=== PATIENT | female | born 1975 | race Caucasian/White ===

== ENCOUNTER → 2016-11-09 | Outpatient (CLI) | payer BC | END | disposition home or self-care (01) | LOC: C.PAPS 11:50 | PROVIDERS: ATTEND Obstetrics & Gynecology | DX: Z01.419 Encounter for gynecological examination (general) (routine) without abnormal findings (principal) ==

== ENCOUNTER → 2016-12-08 | Outpatient (CLI) | payer BC ==
--- NOTE | 2016-12-09 12:37 | MAMMOGRAPHY REPORT ---
BILATERAL DIGITAL SCREENING MAMMOGRAM TOMOSYNTHESIS WITH CAD: 12/08/2016 CLINICAL HISTORY: Routine screening examination. TECHNIQUE: Breast tomosynthesis in addition to standard 2D mammography was performed. Current study was also evaluated with a Computer Aided Detection (CAD) system. COMPARISON: Comparison is made to exam dated: 12/03/2015 mammogram - [facility]. BREAST COMPOSITION: The tissue of both breasts is heterogeneously dense, which may obscure small ma sses. The breast density is increased compared to last years mammogram, unclear if this may be rela ander to technical differences. FINDINGS: No developing mass, architectural distortion or cluster of suspicious microcalcifications is seen in either breast. IMPRESSION: ACR BI-RADS CATEGORY 2: BENIGN There is no mammographic evidence of malignancy. A 1 year screening mammogram is recommended. The p atient will receive written notification of the results. Approximately 10% of breast cancers are not detected with mammography. A negative mammographic repor t should not delay biopsy if a clinically suggestive mass is present. Kelli Coffman M.D. ay/:12/08/2016 17:28:59 Database Support: Anne-Marie FAUSTIN)(Aparna), [facility] letter sent: Normal 1/2 BI-RADS Code: ACR BI-RADS Category 2: Benign
== END | disposition home or self-care (01) ==
LOC: C.MAMM 13:06
PROVIDERS: ATTEND Family Medicine
DX: Z12.31 Encounter for screening mammogram for malignant neoplasm of breast (principal)

== ENCOUNTER → 2017-06-09 | Outpatient (CLI) | payer BC ==
[2017-06-12 11:12] LABS: CHLAMYDIA TRACH RNA*** NOT DETECTED (NOT DETECTED); GC (NEIS GONORRHOEAE)RNA** NOT DETECTED (NOT DETECTED)
== END | disposition home or self-care (01) ==
LOC: C.LABSPEC 15:37
PROVIDERS: ATTEND Obstetrics & Gynecology
DX: Z11.3 Encounter for screening for infections with a predominantly sexual mode of transmission (principal)

== ENCOUNTER → 2017-12-10 | Outpatient (CLI) | payer OTHER ==
--- NOTE | 2017-12-10 15:45 | MAMMOGRAPHY REPORT ---
BILATERAL DIGITAL SCREENING MAMMOGRAM TOMOSYNTHESIS WITH CAD: 12/10/2017 CLINICAL HISTORY: Routine screening. Patient has no complaints. TECHNIQUE: Breast tomosynthesis in addition to standard 2D mammography was performed. Current study was also evaluated with a Computer Aided Detection (CAD) system. COMPARISON: Comparison is made to exams dated: 12/08/2016 mammogram and 12/03/2015 mammogram - [facility]. BREAST COMPOSITION: The tissue of both breasts is heterogeneously dense, which may obscure small mas ses. FINDINGS: No suspicious masses, calcifications, or areas of architectural distortion are noted in ei ther breast. There has been no significant interval change compared to prior exams. IMPRESSION: ACR BI-RADS CATEGORY 1: NEGATIVE There is no mammographic evidence of malignancy. A 1 year screening mammogram is recommended. The pa tient will receive written notification of the results. Approximately 10% of breast cancers are not detected with mammography. A negative mammographic report should not delay biopsy if a clinically suggestive mass is present. Tonja Bonilla M.D. ah/:12/10/2017 14:59:16 Migratory Game Bird Biologist: Latrice Vazquez RT(R)(M)(BD), [facility] letter sent: Normal 1/2 BI-RADS Code: ACR BI-RADS Category 1: Negative
== END | disposition home or self-care (01) ==
LOC: C.MAMM 09:19
PROVIDERS: ATTEND Physician Assistant
DX: Z12.31 Encounter for screening mammogram for malignant neoplasm of breast (principal)

== ENCOUNTER 2025-06-20 14:47 | Inpatient (IN) ==
[2025-06-20 15:48] LABS: Hematocrit (blood only) 36.6 % (37.0-47.0); Hemoglobin 13.1 g/dl (12.0-16.0); Immature Granulocytes # (auto) 0.07 K/uL (0.01-0.20); Immature Granulocytes % (auto) 0.6 %; Mean Corpuscular Hemoglobin 31.6 pg (25.0-34.0); Mean Corpuscular Volume 88.2 fL (80.0-100.0); Platelet Count 266 K/uL (130-400); RDW Standard Deviation 37.8 fL (36.4-46.3); Red Blood Count 4.15 M/uL (4.20-5.40); White Blood Count 10.80 K/ul (4.8-10.8)
[2025-06-20 15:51] LABS: Appearance Urine Clear (Clear); Bacteria Urine Automated 2+ (None Seen); Cast Urine Automated 0-2 /lpf (0-2); Epithelial Cell Urine Auto 0-2 /hpf (0-2); Glucose Urine UA Negative (Negative); RBC Urine Automated >20 /hpf (0-2); WBC Urine Automated 0-5 /hpf (0-5)
[2025-06-20 16:14] LABS: Alanine Aminotransferase 16.0 U/L (7-52); Albumin Globulin Ratio 1.0 (0.9-2); Alkaline Phosphatase 67.0 U/L (34-104); Anion Gap 9.0 (3-11); Bilirubin,Total 0.8 mg/dl (0.2-1.0); Blood Urea Nitrogen 7.0 mg/dl (6-23); Calcium 8.9 mg/dl (8.6-10.3); Carbon Dioxide 26.0 mmol/L (21-32); Chloride 100.0 mmol/L (98-107); Creatinine Clr Calc Pharmacy 126.8 ml/min; Globulin 3.9 gm/dl (2.5-4.0); Glucose 106.0 mg/dl (70-99(Fasting)); Lipase 33.0 U/L (11-82); Potassium 3.4 mmol/L (3.5-5.1); Sodium 135.0 mmol/L (136-145); Total Protein 7.8 gm/dl (6.0-8.3)
--- NOTE | 2025-06-20 17:57 | Emergency Department Note ---
Impression & Plan Duodenal abscess, Perforated duodenal ulcer, Acute upper abdominal pain ED Provider Note NAME: MELANIA ROBERTS AGE: 49 SEX: F : 1975 ARRIVES VIA: Walk-In INFORMANT: Patient, ED PROVIDER(S): Sp Bethea MD CHIEF COMPLAINT: Abdominal pain, abnormal outpatient CT scan MEDICAL DECISION MAKING: Patient presents due to concern for abnormal outpatient CT scan which showed perforated duodenal ulcer with small amount of fluid/abscess. IV was established and blood work was obtained. The patient was also ordered blood cultures empiric IV Zosyn IV fluids procalcitonin. Patient ordered IV Protonix bolus and drip. I did review the patient's outpatient CT with general surgery Dr. Melendrez who recommended conservative management at this time and medical admission. Patient was ordered IV Tylenol 1 g. I subsequently did speak with the on-call hospitalist service Poppy Davis PA-C with Dr. Mathew. Discussion w/ other healthcare providers: Dr. Melendrez general surgery Pamela Davis PA-C and Dr. Gonzalez Prior /Outside records reviewed: None Differential diagnosis: Appendicitis, ovarian cyst, ovarian torsion, ectopic , TOA, PID, diverticulitis, UTI, obstruction, inflammatory bowel disease, renal colic, PUD, pancreatitis, biliary pathology, hernia, volvulus, constipation, as well as other pathologies were considered. Diagnostics, as interpreted by me: ECG: None Cardiac monitoring: An order was placed for continuous cardiac monitoring. The monitor shows a rate of 85 with sinus rhythm. Patient was placed on pulse oximetry Medical decision rules: None Imaging studies: Outpatient CT report from earlier today: ABDOMEN AND PELVIS CT WITH IV CONTRAST CT DOSE: 910.18 mGy.cm HISTORY: R10.9 - Unspecified abdominal pain TECHNIQUE: Multiaxial CT images of the abdomen and pelvis were performed following the IV administration of 90 cc of Optiray, A dose lowering technique was utilized adhering to the principles of ALARA. COMPARISON STUDY: None FINDINGS: ABDOMEN: Liver, gallbladder, spleen, pancreas, and adrenal glands are unremarkable. Kidneys show no hydronephrosis or calculi. No abdominal aortic aneurysm. There is inflammation at the duodenum with an adjacent 4 cm collection of gas and small amount of fluid series 3 image 154 suggesting perforated duodenal ulcer and adjacent small abscess. There is some reactive inflammation adjacent to the hepatic flexure of the colon. Pelvis: Uterus and adnexa are grossly unremarkable. Urinary bladder is nondistended. There is mild retained stool. No bowel obstruction seen. No enlarged adenopathy. No acute osseous findings. IMPRESSION: Findings highly suggestive of perforated duodenal ulcer with adjacent small abscess. HPI: Patient presents due to concern for abnormal outpatient CT scan. Review of the CT scan does show concern for perforated duodenal ulcer with small amount of abscess. Patient states that she developed symptoms over the weekend initially thought that it was from eating too much cheese her friends tries as she was at the [email or web address] on Wednesday. Patient thought that maybe she had some gastroenteritis but was having some persistent right upper quadrant pain and so spoke with her outpatient physician who ordered her CAT scan. Patient denies any significant NSAID use. The patient denies any chest pains or shortness of breath. Patient states that the pain has been relatively constant and currently a 6 out of 10. Patient states that she vomited 1 time on Wednesday but has not vomited since. No significant nausea. Patient states that she drinks maybe 2 drinks daily although her interjects and states maybe every other day. Patient states that she is a former smoker but has not smoked in about 20 years. PAST MEDICAL HISTORY: See Below PAST SURGICAL HISTORY: See Below SOCIAL HISTORY: See Below HOME MEDICATIONS: See Below ALLERGIES: See Below VITALS: See Below PHYSICAL EXAMINATION: GENERAL: NAD, non-toxic. EYE EXAM: Normal conjunctiva. PERRL, no anisocoria and EOM's grossly intact w/o pain. OROPHARYNX: Moist mucus membranes, grossly normal dentition. NECK: Trachea midline, no stridor. LUNGS: Clear to auscultation. Normal chest wall mechanics. HEART: NSR, no MRG. ABDOMEN: Abdomen soft, epigastric and right upper quadrant pain, no lower abdominal tenderness, no masses, no rebound or guarding. BACK: No CVA TTP. SKIN: No rashes and no bruising. UPPER EXTREMITIES: Upper extremities are grossly normal. LOWER EXTREMITIES: Grossly normal, no edema. NEURO EXAM: Awake and alert, follows commands, no obvious facial asymmetry, normal speech, moves all 4 extremities. Past Med/Surg History Problem List (Updated 06/20/25 @ 23:13 by Sp Bethea MD) Acute upper abdominal pain (Acute) Asymptomatic bacteriuria Hypokalemia Duodenal abscess (Acute) Perforated duodenal ulcer (Acute) Increased risk of breast cancer TC SCORE: 37.10% Heterogeneously dense tissue of both breasts on mammography Family history of malignant neoplasm of breast SISTER DX @ 39 Colon cancer screening Irritable bowel syndrome (Acute) Asthma (Acute) Acid reflux disease (Acute) Encounter for screening colonoscopy Medical History Nausea and vomiting after administration of anesthetic agent IBS (irritable bowel syndrome) Hx of migraines X3 IN WHOLE LIFE, 2 WERE DURING History of COVID-19 11/2021, HOME TEST, NOT HOSP; FATIGUE FOR 2-3 WEEKS, BRAIN FOG>RESOLVED. Asthma "ALLERGY INDUCED"-INH PRN Hemorrhoids Surgical History S/P tooth extraction S/P dilation and curettage Family History Sister Breast cancer, Onset Age: 40 Grandfather (Maternal) Leukemia Denies family history of Pancreatic cancer Ovarian cancer Prostate cancer Colorectal cancer Uterus cancer Social History Smoking Status: Former smoker Tobacco Type: Cigarettes Smoking End Date: 20 years ago; Second Hand Exposure: No; Do You Dip or Chew Tobacco: No; Hx Alcohol Use: Yes Alcohol type: wine Alcohol Intake Frequency Comment: One glass daily Hx Substance Use: Yes Substance Use Type Other:: occasional Preferred Language: Persian Communication Ability: Effective Visual Impairment: No Limitations Hearing Ability: Normal Fabric Normalizer Required: No Beliefs That Will Affect Care: None marital status: Single Current Living Situation: Spouse current occupational status: employed current occupation: [employer] Feels Safe at Home: Yes Safety Concerns: Feels Safe At This Time Dental Care, Regularly: Yes Physical Activity Frequency: 1-2 Times per Week Assistive Devices: Glasses Allergies Allergies Allergy/AdvReac Type Severity Reaction Status Date / Time cat dander Allergy Severe Verified 06/20/25 11:27 No Known Drug Allergies Allergy Unknown Verified 06/20/25 11:27 nickel Allergy CONTACT Verified 06/20/25 11:27 DERMATITIS Home Meds Previous Rx's Medication Instructions Recorded hydrocortisone 2.5 % topical cream 1 appln [place] DAILY PRN hemorrhoids 05/02/19 with perineal applicator #30 grams (Anusol-HC) albuterol sulfate 90 mcg/actuation 2 inh inhalation QID PRN shortness 06/02/22 aerosol inhaler (Ventolin HFA) of breath or wheezing #18 grams estradiol 0.01% (0.1 mg/gram) 1 g vaginal DAILY #42.5 grams 05/10/25 vaginal cream Results & Data (ED) Vital Signs Vital Signs - 24 hr 06/20/25 15:18 06/20/25 18:08 06/20/25 18:09 Temperature 36.7 C Temperature Source Oral Pulse Rate 95 H 87 83 Pulse Rate [Apical] Pulse Rate from SpO2 Sensor 85 Pulse Rhythm Respiratory Rate 18 13 Respiratory Effort / Characteristics Respiratory Depth Respiratory Pattern Blood Pressure 105/70 108/75 Blood Pressure [Right Arm] Blood Pressure Mean 81 86 Blood Pressure Mean [Right Arm] Pulse Oximetry 100 98 Oxygen Delivery Method Room Air Sepsis Recent Fever Within 48 Hours No Sepsis New/Unexplained Change in Mental Status N/A Sepsis Action Taken by Nursing No Action Required 06/20/25 19:14 06/20/25 19:14 Temperature Temperature Source Pulse Rate 82 Pulse Rate [Apical] 82 Pulse Rate from SpO2 Sensor Pulse Rhythm Regular Respiratory Rate 16 16 Respiratory Effort / Characteristics Non-Labored Spontaneous Respiratory Depth Normal Respiratory Pattern Regular Blood Pressure Blood Pressure [Right Arm] 110/69 Blood Pressure Mean Blood Pressure Mean [Right Arm] 82 Pulse Oximetry 99 99 Oxygen Delivery Method Room Air Room Air Sepsis Recent Fever Within 48 Hours Sepsis New/Unexplained Change in Mental Status Sepsis Action Taken by [facility]pc Medications Current Medication List: was personally reviewed by me Laboratory Data Attestation: I reviewed the patient's lab results. 06/20/25 15:29 06/20/25 15:29 Lab Results 06/20/25 06/20/25 06/20/25 Range/Units 15:29 15:35 19:47 WBC 10.80 (4.8-10.8) K/ul RBC 4.15 L (4.20-5.40) M/uL Hgb 13.1 (12.0-16.0) g/dl Hct 36.6 L (37.0-47.0) % MCV 88.2 (80.0-100.0) fL MCH 31.6 (25.0-34.0) pg MCHC 35.8 (32.0-36.0) g/dL RDW Std Deviation 37.8 (36.4-46.3) fL RDW Coeff of Niyah 11.8 (11.5-14.5) % Plt Count 266 (130-400) K/uL MPV 8.6 L (9.4-12.4) fL Immature Gran % (Auto) 0.6 % Neut % (Auto) 83.2 % Lymph % (Auto) 8.7 % [place] % (Auto) 6.3 % Eos % (Auto) 1.0 % Baso % (Auto) 0.2 % Neut # (Auto) 8.98 H (1.40-6.50) K/uL Lymph # (Auto) 0.94 L (1.20-3.40) K/uL [place] # (Auto) 0.68 H (0.11-0.59) K/uL Eos # (Auto) 0.11 (0.00-0.50) K/uL Baso # (Auto) 0.02 (0.00-0.20) K/uL Immature Gran # (Auto) 0.07 (0.01-0.20) K/uL Sodium 135 L (136-145) mmol/L Potassium 3.4 L (3.5-5.1) mmol/L Chloride 100 (98-107) mmol/L Carbon Dioxide 26 (21-32) mmol/L Anion Gap 9 (3-11) BUN 7 (6-23) mg/dl Creatinine 0.53 L (0.6-1.2) mg/dl Est Cr Clr Drug Dosing 126.8 ml/min eGFR 114.01 BUN/Creatinine Ratio 13.2 (10-20) Glucose 106 H (70-99(Fasting)) mg/dl Calcium 8.9 (8.6-10.3) mg/dl Magnesium 2.1 (1.7-2.4) mg/dl Total Bilirubin 0.8 (0.2-1.0) mg/dl AST 15 (13-39) U/L ALT 16 (7-52) U/L Alkaline Phosphatase 67 (34-104) U/L Total Protein 7.8 (6.0-8.3) gm/dl Albumin 3.9 (3.4-5.0) gm/dl Globulin 3.9 (2.5-4.0) gm/dl Albumin/Globulin Ratio 1.0 (0.9-2) Lipase 33 (11-82) U/L Procalcitonin 0.73 H (0-0.5) ng/ml Urine Color Yellow Urine Appearance Clear (Clear) Urine pH 6.5 (4.5-7.5) Ur Specific [place] > 1.045 H (1.000-1.030) Urine Protein Negative (Negative) Urine Glucose (UA) Negative (Negative) Urine Ketones Negative (Negative) Urine Blood 2+ H (Negative) Urine Nitrite Negative (Negative) Urine Bilirubin Negative (Negative) Urine Urobilinogen Negative (Negative) Ur Leukocyte Esterase 1+ H (Negative) Urine WBC (Auto) 0-5 (0-5) /hpf Urine RBC (Auto) >20 H (0-2) /hpf U Hyaline Cast (Auto) 0-2 (0-2) /lpf U Epithel Cells (Auto) 0-2 (0-2) /hpf Urine Bacteria (Auto) 2+ H (None Seen) Urine Comment Nasal Screen MRSA (PCR) Negative (Negative) Administered Medications Pantoprazole Sodium 40 mg/ (Dextrose) 100 mls @ 20 mls/hr IV Q5H ANDREINA Stop: 07/20/25 18:14 Last Admin: 06/20/25 19:44 Dose: 8 mg/hr, 20 mls/hr Documented By: JARED Lactated Ringer's (Lr) 1,000 mls @ 80 mls/hr IV .[id number] ANDREINA Stop: 06/21/25 20:59 Last Admin: 06/20/25 20:28 Dose: 80 mls/hr Documented By: CHACHA Potassium Chloride (K Vlad / Wtr) 10 meq in 100 mls @ 100 mls/hr IV Q1H ANDREINA Stop: 06/20/25 23:59 Last Admin: 06/20/25 22:39 Dose: 100 mls/hr Documented By: Infusion: 06/20/25 21:30 Dose: Infused Documented By: Admin: 06/20/25 20:28 Dose: 100 mls/hr Documented By: MLKristi Discontinued Medications Piperacillin Sod/Tazobactam Sod (Zosyn) 4.5 gm in 100 mls @ 200 mls/hr IV NOW ONE; Protocol Stop: 06/20/25 18:25 Last Infusion: 06/20/25 19:21 Dose: Infused Documented By: Admin: 06/20/25 18:43 Dose: 200 mls/hr Documented By: CEF Pantoprazole Sodium 80 mg/ (Dextrose) 120 mls @ 480 mls/hr IV NOW ONE Stop: 06/20/25 18:10 Last Infusion: 06/20/25 19:44 Dose: Infused Documented By: Admin: 06/20/25 19:17 Dose: 480 mls/hr Documented By: JARED Sodium Chloride (Nss) 1,000 mls @ 999 mls/hr IV .Q1H1M ONE Stop: 06/20/25 18:57 Last Infusion: 06/20/25 19:44 Dose: Infused Documented By: Admin: 06/20/25 18:43 Dose: 999 mls/hr Documented By: CEF Acetaminophen (Ofirmev) 1,000 mg in 100 mls @ 400 mls/hr IV NOW STA Stop: 06/20/25 18:59 Last Infusion: 06/20/25 19:43 Dose: Infused Documented By: Admin: 06/20/25 19:23 Dose: 400 mls/hr Documented By: JARED Pantoprazole Sodium (Pantoprazole Bolus/Drip) 1 each IV NOW STA Stop: 06/20/25 17:57 Last Admin: 06/20/25 19:20 Dose: Not Given Documented By: JARED Discharge Plan Visit Data Chief Complaint: Referred by Doctor Stated Complaint: REF BY DOC, PERFRATED ULCER ED Provider: Sp Bethea Discharge Problem: Duodenal abscess, Perforated duodenal ulcer, Acute upper abdominal pain Patient Disposition: Admitted As Inpatient Condition: Good Discharge Instructions Interventions: ED Discharge Assessment Last Done: 06/20/25 21:22
[2025-06-20] MEDS: PIPERACILLIN/TAZOBACTAM 4.5 GM/100 ML BAG IV ONE (18:43)
[2025-06-20] MEDS: SODIUM CHLORIDE 0.9% 1,000 ML IV ONE (18:43)
[2025-06-20] MEDS: PANTOPRAZOLE BOLUS/DRIP IV STA (19:20)
[2025-06-20] MEDS: ACETAMINOPHEN 1,000 MG/100 ML VIAL IV STA (19:23)
[2025-06-20] MEDS: PANTOprazole 40 MG in DEXTROSE 5% MINI-B 100 ML IV SCH (19:44)
[2025-06-20 19:50] LABS: Magnesium 2.1 mg/dl (1.7-2.4)
--- NOTE | 2025-06-20 19:51 | History & Physical Report ---
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 Patient presented to her PCP in the a.m. 06/20 due to 3 days of right upper quadrant abdominal cramping, chills, fatigue, and poor appetite. PCP ordered a stat CT which showed perforated duodenal ulcer with small abscess and patient was referred to come into the ED for admission. #perforated duodenal ulcer and abscess seen on abdomen pelvis CT. Patient denies any hematemesis, melena, hematochezia, GERD hx, frequent NSAID use; however does drink 10-14 alcohol beverages per week. Non-septic at time of admission no leukocytosis, VSS, afebrile; Pro-Ace 0.73. General surgery consulted N.p.o. Received 1L NSS bolus in ED, continue fluid resuscitation with LR 80 mL/hour Continue Protonix drip started in the ED Continue Zosyn 4.5 G IV every 8 hours MRSA swab ordered Follow-up blood cultures Pain control with 1G IV Tylenol as needed, morphine for breakthrough pain Zofran as needed trend CBC #HypokalemiaK+ 3.4, other electrolytes and renal function stable. Likely 2/2 poor p.o. intake for several days. 4 bags IV K rider ordered Trend BMP #Asymptomatic bacteriuriaUA with elevated specific gravity, RBC, 1+ LE, 2+ bacteria. Patient denies any urinary symptoms. Defer additional antibiotic coverage at this time however is covered with Zosyn for above Follow urine cultures #Alcohol usepatient reports 10-14 alcoholic beverages per week, denies any previous withdrawal symptoms. She reports she does occasionally go some days without drinking. Low concern for withdrawal on admission. #Asthmaallergy induced, continue as needed inhaler. #Breast fibroadenomasfollowed by general surgery, [employer], patient has referral to breast surgeon in outpatient setting given high risk for breast cancer (Family history and positive genetic testing). 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 Patient presented to her PCP in the a.m. 06/20 due to 3 days of right upper quadrant abdominal cramping, chills, fatigue, and poor appetite. PCP ordered a stat CT which showed perforated duodenal ulcer with small abscess and patient was referred to come into the ED for admission. Patient seen at bedside. 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 She stated she went to the [place] on Wednesday and had a lot of cheese and beer which typically flares up her IBS so she did not think much of her stomach cramping on Wednesday. She also had chills on Wednesday. As the week went on she also experienced some fatigue, soreness, poor appetite and had to cancel several of her classes. She also endorses 1 episode of vomiting on Wednesday, denies any hematemesis. 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 She denies any history of acid reflux, chest pain, shortness of breath, melena, hematochezia, dysuria, difficulty urinating, hematuria. She stated she was a former smoker in college however has not smoked in about 20 years. She does endorse alcohol use, most days of the week however she stated she does go some days without drinking. She states she typically drinks 10-14 alcohol beverages per week which consists of a glass of wine with dinner or a mixed drink. Guarding a past medical history, she rarely has to use her home inhaler for her asthma that is allergy induced. She also is being followed for potential breast cancer as her sister got diagnosed with breast cancer at 40 and she had genetic testing which showed she was high risk. She had biopsies of bilateral breast fibroadenomas and one of them appeared precancerous however she has not been diagnosed with any cancer. She wishes to be full code. Handoff from ER provider stated that he spoke with on-call general surgeon who recommended no NG tube, continue IV antibiotics, general surgery team will evaluate the patient in the morning. Allergies Allergy/AdvReac Type Severity Reaction Status Date / Time cat dander Allergy Severe Verified 06/20/25 11:27 No Known Drug Allergies Allergy Unknown Verified 06/20/25 11:27 nickel Allergy CONTACT Verified 06/20/25 11:27 DERMATITIS Home Medications Medication Instructions Recorded Confirmed Type hydrocortisone 2.5 % topical cream 1 appln CA DAILY PRN hemorrhoids 05/02/19 06/20/25 Rx with perineal applicator #30 grams (Anusol-HC) albuterol sulfate 90 mcg/actuation 2 inh inhalation QID PRN shortness 06/02/22 06/20/25 Rx aerosol inhaler (Ventolin HFA) of breath or wheezing #18 grams estradiol 0.01% (0.1 mg/gram) 1 g vaginal DAILY #42.5 grams 05/10/25 06/20/25 Rx vaginal cream Past Med/Surg History Problem List (Updated 06/20/25 @ 23:13 by Sp Bethea MD) Acute upper abdominal pain (Acute) Asymptomatic bacteriuria Hypokalemia Duodenal abscess (Acute) Perforated duodenal ulcer (Acute) Increased risk of breast cancer TC SCORE: 37.10% Heterogeneously dense tissue of both breasts on mammography Family history of malignant neoplasm of breast SISTER DX @ 39 Colon cancer screening Irritable bowel syndrome (Acute) Asthma (Acute) Acid reflux disease (Acute) Encounter for screening colonoscopy Medical History Nausea and vomiting after administration of anesthetic agent IBS (irritable bowel syndrome) Hx of migraines X3 IN WHOLE LIFE, 2 WERE DURING History of COVID-19 11/2021, HOME TEST, NOT HOSP; FATIGUE FOR 2-3 WEEKS, BRAIN FOG>RESOLVED. Asthma "ALLERGY INDUCED"-INH PRN Hemorrhoids Surgical History S/P tooth extraction S/P dilation and curettage Family History Sister Breast cancer, Onset Age: 40 Grandfather (Maternal) Leukemia Denies family history of Pancreatic cancer Ovarian cancer Prostate cancer Colorectal cancer Uterus cancer Social History Smoking Status: Former smoker Tobacco Type: Cigarettes Smoking End Date: 20 years ago; Second Hand Exposure: No; Do You Dip or Chew Tobacco: No; Hx Alcohol Use: Yes Alcohol type: wine Alcohol Intake Frequency Comment: One glass daily Hx Substance Use: Yes Substance Use Type Other:: occasional Preferred Language: Citizen Of [place] Communication Ability: Effective Visual Impairment: No Limitations Hearing Ability: Normal Measurement And Sensing Technician Required: No Beliefs That Will Affect Care: None marital status: Single Current Living Situation: Spouse current occupational status: employed 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 Non-toxic appearing. HEENT- EOMI, mucous membranes moist. Hearing grossly intact. Heart-normal S1 and S2. No murmurs, rubs or gallops. Lungs-clear bilaterally, no respiratory distress, no accessory muscle use. Abdomen-normal bowel sounds and soft. No ascites noted. Tender RUQ and epigastric region. Extremities- no clubbing, cyanosis, or edema. Rheumatologic-normal range of motion. Psychiatric-normal affect. Results & Data Results & Data Vital Signs (Past 12 Hours) Vital Signs Temp Pulse Pulse Resp BP BP Pulse Ox 06/20/25 19:14 82 16 99 06/20/25 19:14 82 16 110/69 99 06/20/25 18:09 83 13 108/75 98 06/20/25 18:08 87 06/20/25 15:18 36.7 C 95 H 18 105/70 100 O2 Del Method 06/20/25 19:14 Room Air 06/20/25 19:14 Room Air 06/20/25 18:09 06/20/25 18:08 06/20/25 15:18 Room Air Laboratory Results reviewed CBC, CMP, mag, procal, UA ordered MRSA swab Diagnostic Findings reviewed AP CT Medications Administered EDProtonix drip, Zosyn 4.5 mg IV, 1L NSS bolus, 1G IV Tylenol ECG Additional Comments: ordered Code Status & VTE Plan Code Status full code VTE Prophylaxis Plan VTE Prophylaxis will be ordered: Yes Supervising Physician Co-Signing Physician Notes Attending addendum: I have physically seen this patient, have supervised the EKTA's activities, and agree with the H&P unless as otherwise noted. 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 She had presented to her PCP 9:10 AM, due to 3 days of right upper quadrant abdominal cramping, chills, fatigue and poor appetite. Her PCP ordered a stat CT scan of abdomen pelvis, which showed a perforated duodenal ulcer with adjacent small abscess, and she was advised to come to the ED for assessment. When she arrived to the ED, she was placed on pantoprazole bolus/drip, Zosyn 4.5 g IV, normal saline 1 L bolus, and, 1 g IV. [facility] Perforated duodenal ulcer with adjacent small abscess- Status post 1 L normal saline bolus in the ED NPO Potential risk factors include alcohol use, and the single use of ibuprofen 800 mg the day before symptoms began Place on LR at 80 mL/h Continue Protonix drip Zosyn 4.5 g IV every 8 hours MRSA swab Follow-up blood culture and sensitivity Acetaminophen 1 g IV every 8 hours as needed for mild pain or fever Zofran 4 mg IV every 6 hours as needed Follow serial laboratories Order stool for H. pylori antigen Consult general surgery Hypokalemia- Potassium 3.4 on admission, likely lower due to associated IV fluid resuscitation K riders as noted Serial basic metabolic panel Asymptomatic bacteriuria- Patient without symptoms Follow urine culture and sensitivity Will be covered by Zosyn above this note Alcohol use- Patient reports 10-14 alcoholic beverages weekly, with no history of alcohol withdrawal If signs of withdrawal, will place on AWSS protocol at that time Asthma- Continue albuterol HFA as needed PG Care Time/CCT Total # of Minutes Spent Total Time Spent with Patient: Total time spent is greater than 50% in coordination of care (as documented) at patient's floor/unit and/or counseling patient: Coding Level of Care Code 46243 INT INP/OBS CARE 3/75MIN Diagnoses Perforated duodenal ulcer K26.5 Duodenal abscess K63.0 Hypokalemia E87.6 Asymptomatic bacteriuria R82.71
[2025-06-20] MEDS: POTASSIUM CHLORIDE / WTR 10 MEQ/100 ML PLCT IV SCH (20:28)
[2025-06-20] MEDS: LACTATED RINGER'S 1,000 ML IV SCH (20:28)
[2025-06-20] MEDS ORDERED: ALBUTEROL HFA 8 GM INHALER INH PRN (22:17)
[2025-06-20] MEDS ORDERED: MoRPHine SULFATE 4 MG/ML 1 ML CARP\\VIAL IV PRN (22:17)
[2025-06-21] MEDS: PIPERACILLIN/TAZOBACTAM 4.5 GM/100 ML BAG IV SCH (00:34)
[2025-06-21] MEDS: MoRPHine SULFATE 2 MG/ML CARP IV PRN (04:31)
[2025-06-21 06:22] LABS: Hematocrit (blood only) 31.2 % (37.0-47.0); Hemoglobin 10.6 g/dl (12.0-16.0); Immature Granulocytes # (auto) 0.03 K/uL (0.01-0.20); Immature Granulocytes % (auto) 0.4 %; Mean Corpuscular Hemoglobin 30.0 pg (25.0-34.0); Mean Corpuscular Volume 88.4 fL (80.0-100.0); Platelet Count 222 K/uL (130-400); RDW Standard Deviation 38.1 fL (36.4-46.3); Red Blood Count 3.53 M/uL (4.20-5.40); White Blood Count 6.95 K/ul (4.8-10.8)
[2025-06-21 06:51] LABS: Alanine Aminotransferase 10.0 U/L (7-52); Albumin Globulin Ratio 1.0 (0.9-2); Alkaline Phosphatase 46.0 U/L (34-104); Anion Gap 7.0 (3-11); Bilirubin,Total 0.8 mg/dl (0.2-1.0); Blood Urea Nitrogen 5.0 mg/dl (6-23); Calcium 7.9 mg/dl (8.6-10.3); Carbon Dioxide 25.0 mmol/L (21-32); Chloride 107.0 mmol/L (98-107); Creatinine Clr Calc Pharmacy 140.1 ml/min; Globulin 2.9 gm/dl (2.5-4.0); Glucose 104.0 mg/dl (70-99(Fasting)); Magnesium 2.0 mg/dl (1.7-2.4); Potassium 3.3 mmol/L (3.5-5.1); Sodium 139.0 mmol/L (136-145); Total Protein 5.8 gm/dl (6.0-8.3)
[2025-06-21] MEDS: POTASSIUM CHLORIDE / WTR 10 MEQ/100 ML PLCT IV SCH (08:35)
--- NOTE | 2025-06-21 09:41 | Surgery Consultation ---
Date of Consultation June 21, 2025 Assessment & Plan (1) Duodenal abscess: (2) Perforated duodenal ulcer: Plan 49 yo female with 4 day history of right upper abdominal pain with associated bloating vomiting x 1 found to have perforated duodenal ulcer with 4 cm abscess. hemodynamically stable, no pneumoperitoneum, no leukocytosis, afebrile. Soft abdomen with tenderness in RUQ. No acute surgical intervention required. Recommend strict NPO for today, bowel rest, IV fluids, IV antibiotics, Protonix drip, antiemetics and pain management as needed, follow labs. Will need to slowly increase diet and will need GI consultation to establish care for outpatient upper endoscopy. Will follow along. Discussed with Dr. Anaya who agrees with above. History of Present Illness Reason for Consultation: Duodenal perforation with abscess Requesting Physician: Sp Bethea MD Attending Physician: James Hall MD History of Present Illness Clara is a 49 year old female who presented to the emergency department with 4 day history of abdominal pain in upper quadrant with bloating and indigestion. she states she thought possibly gastroenteritis or flare of her IBS. No fevers but had chills and sweats. No persistent nausea or vomiting. Vomiting x 1. No vomiting blood. No blood in stools. No history of daily NSAID use. Does drink wine and cocktail after dinner about 10-14 drinks per week. No current smoking. History of smoking 20 years ago socially. No history of GERD or significant heartburn. No history of endoscopy. No history of abdominal surgeries. Allergies Allergy/AdvReac Type Severity Reaction Status Date / Time cat dander Allergy Severe Verified 06/20/25 11:27 No Known Drug Allergies Allergy Unknown Verified 06/20/25 11:27 nickel Allergy CONTACT Verified 06/20/25 11:27 DERMATITIS Home Medications Medication Instructions Recorded Confirmed Type hydrocortisone 2.5 % topical cream 1 appln ID DAILY PRN hemorrhoids 05/02/19 06/20/25 Rx with perineal applicator #30 grams (Anusol-HC) albuterol sulfate 90 mcg/actuation 2 inh inhalation QID PRN shortness 06/02/22 06/20/25 Rx aerosol inhaler (Ventolin HFA) of breath or wheezing #18 grams estradiol 0.01% (0.1 mg/gram) 1 g vaginal DAILY #42.5 grams 05/10/25 06/20/25 Rx vaginal cream Patient History Medical History Nausea and vomiting after administration of anesthetic agent IBS (irritable bowel syndrome) Hx of migraines X3 IN WHOLE LIFE, 2 WERE DURING History of COVID-19 11/2021, HOME TEST, NOT HOSP; FATIGUE FOR 2-3 WEEKS, BRAIN FOG>RESOLVED. Asthma "ALLERGY INDUCED"-INH PRN Hemorrhoids Surgical History S/P tooth extraction S/P dilation and curettage Family History Sister Breast cancer, Onset Age: 40 Grandfather (Maternal) Leukemia Denies family history of Pancreatic cancer Ovarian cancer Prostate cancer Colorectal cancer Uterus cancer Social History Smoking Status: Former smoker Tobacco Type: Cigarettes Smoking End Date: 20 years ago; Second Hand Exposure: No; Do You Dip or Chew Tobacco: No; Hx Alcohol Use: Yes Alcohol type: wine Alcohol Intake Frequency Comment: One glass daily Hx Substance Use: Yes Substance Use Type Other:: occasional Preferred Language: [place] Communication Ability: Effective Visual Impairment: No Limitations Hearing Ability: Normal Upward Bound Director Required: No Beliefs That Will Affect Care: None marital status: Single Current Living Situation: Spouse current occupational status: employed 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 Feels Safe at Home: Yes Safety Concerns: Feels Safe At This Time Dental Care, Regularly: Yes Physical Activity Frequency: 1-2 Times per Week Assistive Devices: Glasses Review of Systems Review of Systems: All systems reviewed & are unremarkable except as noted in HPI & below Physical Exam Constitutional: WD/WN, vitals as above cooperative and comfortable; no acute distress and not ill appearing Respiratory: normal respiratory effort, lungs clear to auscultation Cardiovascular: RRR, no murmur, no edema Gastrointestinal (Abdomen): Inspection/Auscultation: abdomen normal to inspection and + hypoactive bowel sounds; abdomen not distended and + abnormal bowel sounds Percussion/Palpation: + abdomen tender (RUQ) and abdomen soft; no guarding, abdomen not rigid and abdomen not firm Skin: no rashes, warm and dry Psychiatric: A+Ox3, euthymic affect Results & Data Vital Signs (Past 12 Hours) Vital Signs Temp Pulse Pulse Resp BP Pulse Ox O2 Del Method 06/21/25 08:58 37.0 C 82 16 122/76 97 Room Air 06/21/25 02:47 36.8 C 83 18 110/71 97 Room Air 06/20/25 22:48 75 06/20/25 22:21 36.6 C 80 18 124/70 97 Room Air Laboratory Results 06/21/25 06/20/25 06/20/25 Range/Units 05:39 19:47 15:35 WBC 6.95 (4.8-10.8) K/ul RBC 3.53 L (4.20-5.40) M/uL Hgb 10.6 L (12.0-16.0) g/dl Hct 31.2 L (37.0-47.0) % MCV 88.4 (80.0-100.0) fL MCH 30.0 (25.0-34.0) pg MCHC 34.0 (32.0-36.0) g/dL RDW Std Deviation 38.1 (36.4-46.3) fL RDW Coeff of Niyah 11.9 (11.5-14.5) % Plt Count 222 (130-400) K/uL MPV 8.7 L (9.4-12.4) fL Immature Gran % (Auto) 0.4 % Neut % (Auto) 69.3 % Lymph % (Auto) 17.0 % Tyrrell % (Auto) 9.5 % Eos % (Auto) 3.5 % Baso % (Auto) 0.3 % Neut # (Auto) 4.82 (1.40-6.50) K/uL Lymph # (Auto) 1.18 L (1.20-3.40) K/uL Tyrrell # (Auto) 0.66 H (0.11-0.59) K/uL Eos # (Auto) 0.24 (0.00-0.50) K/uL Baso # (Auto) 0.02 (0.00-0.20) K/uL Immature Gran # (Auto) 0.03 (0.01-0.20) K/uL Sodium 139 (136-145) mmol/L Potassium 3.3 L (3.5-5.1) mmol/L Chloride 107 (98-107) mmol/L Carbon Dioxide 25 (21-32) mmol/L Anion Gap 7 (3-11) BUN 5 L (6-23) mg/dl Creatinine 0.48 L (0.6-1.2) mg/dl Est Cr Clr Drug Dosing 140.1 ml/min eGFR 116.76 BUN/Creatinine Ratio 10.4 (10-20) Glucose 104 H (70-99(Fasting)) mg/dl Calcium 7.9 L (8.6-10.3) mg/dl Magnesium 2.0 (1.7-2.4) mg/dl Total Bilirubin 0.8 (0.2-1.0) mg/dl AST 9 L (13-39) U/L ALT 10 (7-52) U/L Alkaline Phosphatase 46 (34-104) U/L Total Protein 5.8 L D (6.0-8.3) gm/dl Albumin 2.9 L (3.4-5.0) gm/dl Globulin 2.9 (2.5-4.0) gm/dl Albumin/Globulin Ratio 1.0 (0.9-2) Lipase (11-82) U/L Procalcitonin (0-0.5) ng/ml Urine Color Yellow Urine Appearance Clear (Clear) Urine pH 6.5 (4.5-7.5) Ur Specific [place] > 1.045 H (1.000-1.030) Urine Protein Negative (Negative) Urine Glucose (UA) Negative (Negative) Urine Ketones Negative (Negative) Urine Blood 2+ H (Negative) Urine Nitrite Negative (Negative) Urine Bilirubin Negative (Negative) Urine Urobilinogen Negative (Negative) Ur Leukocyte Esterase 1+ H (Negative) Urine WBC (Auto) 0-5 (0-5) /hpf Urine RBC (Auto) >20 H (0-2) /hpf U Hyaline Cast (Auto) 0-2 (0-2) /lpf U Epithel Cells (Auto) 0-2 (0-2) /hpf Urine Bacteria (Auto) 2+ H (None Seen) Urine Comment Nasal Screen MRSA (PCR) Negative (Negative) 06/20/25 Range/Units 15:29 WBC 10.80 (4.8-10.8) K/ul RBC 4.15 L (4.20-5.40) M/uL Hgb 13.1 (12.0-16.0) g/dl Hct 36.6 L (37.0-47.0) % MCV 88.2 (80.0-100.0) fL MCH 31.6 (25.0-34.0) pg MCHC 35.8 (32.0-36.0) g/dL RDW Std Deviation 37.8 (36.4-46.3) fL RDW Coeff of Niyah 11.8 (11.5-14.5) % Plt Count 266 (130-400) K/uL MPV 8.6 L (9.4-12.4) fL Immature Gran % (Auto) 0.6 % Neut % (Auto) 83.2 % Lymph % (Auto) 8.7 % Tyrrell % (Auto) 6.3 % Eos % (Auto) 1.0 % Baso % (Auto) 0.2 % Neut # (Auto) 8.98 H (1.40-6.50) K/uL Lymph # (Auto) 0.94 L (1.20-3.40) K/uL Tyrrell # (Auto) 0.68 H (0.11-0.59) K/uL Eos # (Auto) 0.11 (0.00-0.50) K/uL Baso # (Auto) 0.02 (0.00-0.20) K/uL Immature Gran # (Auto) 0.07 (0.01-0.20) K/uL Sodium 135 L (136-145) mmol/L Potassium 3.4 L (3.5-5.1) mmol/L Chloride 100 (98-107) mmol/L Carbon Dioxide 26 (21-32) mmol/L Anion Gap 9 (3-11) BUN 7 (6-23) mg/dl Creatinine 0.53 L (0.6-1.2) mg/dl Est Cr Clr Drug Dosing 126.8 ml/min eGFR 114.01 BUN/Creatinine Ratio 13.2 (10-20) Glucose 106 H (70-99(Fasting)) mg/dl Calcium 8.9 (8.6-10.3) mg/dl Magnesium 2.1 (1.7-2.4) mg/dl Total Bilirubin 0.8 (0.2-1.0) mg/dl AST 15 (13-39) U/L ALT 16 (7-52) U/L Alkaline Phosphatase 67 (34-104) U/L Total Protein 7.8 (6.0-8.3) gm/dl Albumin 3.9 (3.4-5.0) gm/dl Globulin 3.9 (2.5-4.0) gm/dl Albumin/Globulin Ratio 1.0 (0.9-2) Lipase 33 (11-82) U/L Procalcitonin 0.73 H (0-0.5) ng/ml Urine Color Urine Appearance (Clear) Urine pH (4.5-7.5) Ur Specific [place] (1.000-1.030) Urine Protein (Negative) Urine Glucose (UA) (Negative) Urine Ketones (Negative) Urine Blood (Negative) Urine Nitrite (Negative) Urine Bilirubin (Negative) Urine Urobilinogen (Negative) Ur Leukocyte Esterase (Negative) Urine WBC (Auto) (0-5) /hpf Urine RBC (Auto) (0-2) /hpf U Hyaline Cast (Auto) (0-2) /lpf U Epithel Cells (Auto) (0-2) /hpf Urine Bacteria (Auto) (None Seen) Urine Comment Nasal Screen MRSA (PCR) (Negative) Diagnostic Findings ABDOMEN AND PELVIS CT WITH IV CONTRAST CT DOSE: 910.18 mGy.cm HISTORY: R10.9 - Unspecified abdominal pain TECHNIQUE: Multiaxial CT images of the abdomen and pelvis were performed following the IV administration of 90 cc of Optiray, A dose lowering technique was utilized adhering to the principles of ALARA. COMPARISON STUDY: None FINDINGS: ABDOMEN: Liver, gallbladder, spleen, pancreas, and adrenal glands are unremarkable. Kidneys show no hydronephrosis or calculi. No abdominal aortic aneurysm. There is inflammation at the duodenum with an adjacent 4 cm collection of gas and small amount of fluid series 3 image 154 suggesting perforated duodenal ulcer and adjacent small abscess. There is some reactive inflammation adjacent to the hepatic flexure of the colon. Pelvis: Uterus and adnexa are grossly unremarkable. Urinary bladder is nondistended. There is mild retained stool. No bowel obstruction seen. No enlarged adenopathy. No acute osseous findings. IMPRESSION: Findings highly suggestive of perforated duodenal ulcer with adjacent small abscess. Personally reviewed ct scan images and concur with above findings
--- NOTE | 2025-06-21 10:28 | Hospitalist Progress Note ---
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 Patient presented to her PCP in the a.m. 06/20 due to 3 days of right upper quadrant abdominal cramping, chills, fatigue, and poor appetite. PCP ordered a stat CT which showed perforated duodenal ulcer with small abscess and patient was referred to come into the ED for admission. #Perforated duodenal ulcer and abscess seen on abdomen pelvis CT. Patient denies any hematemesis, melena, hematochezia, GERD hx, frequent NSAID use; however does drink 10-14 alcohol beverages per week. Non-septic at time of admission no leukocytosis, VSS, afebrile; Pro-Ace 0.73. General surgery consulted Plan for conservative measures Abscess is small and IR is likely not an option due to location close to the small bowel Patient will require GI consult outpatient for a endoscopy Strict n.p.o. for now; sips okay Continue fluid resuscitation with LR 80 mL/hour while NPO Continue Protonix drip started in the ED Continue Zosyn 4.5 G IV every 8 hours Patient will likely require IV antibiotics x 3 days pending improvement MRSA swab ordered Follow-up blood cultures IV pain control with Tylenol and morphine as needed IV antiemetics PRN Trend CBC #Hypokalemia Suspected due to poor p.o. intake several days [employer] K remains low at 3.3 on the morning of 06/21 K riders for repletion PRN Trend BMP #Asymptomatic bacteriuriaUA with elevated specific gravity, RBC, 1+ LE, 2+ bacteria. Patient denies any urinary symptoms. Defer additional antibiotic coverage at this time however is covered with Zosyn for above Follow current UCx #Alcohol use Patient reports 10-14 alcoholic beverages per week, denies any previous withdrawal symptoms. She reports she does occasionally go some days without drinking. Low concern for withdrawal on admission. #Asthma Allergy induced, continue as needed inhaler. 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 VTE ppx: SCDs, defer chemical with possible surgical management and low risk Dispo: Continued stay on med/tele Admission and Anticipated Discharge Date Admission Date: June 20, 2025 Supervising Physician Co-Signing Physician Notes Attending Attestation - Chart reviewed, care plan d/w EMILIE Collier. I agree w/ the villarreal components of his documentation. Appreciate gen surg assistance. Cont IV PPI. Cont IV abx. James Hall MD Subjective Mrs. Shaw reports that the pain is "not too bad" as long as she remains still. She characterizes the pain as a right upper quadrant/epigastric pain that is tender to palpation and "stabs" with deep breaths. She rates the pain as a 2 out of 10 at present, and 6 out of 10 at worst. Patient denies any prior history of peptic ulcers. However last Wednesday, patient did take ibuprofen 400 mg x 2, and was drinking alcohol for the [employer] game. She does endorse regular alcohol use throughout the week (might have 1 glass of wine e very day with dinner). No prior history of abdominal surgeries. She does have a personal history of IBS, but no history of GERD. While she did have 1 episode of chills/vomiting on Wednesday, she has not vomited since. 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 ROS: Patient endorses right upper quadrant abdominal pain/cramping, and some nausea. Patient denies vomiting (resolved), fevers, chest pain, SOB, chest palpitations, diarrhea, burning with urination, blood in the urine or stool, or change in urinary bowel habits. Review of Systems Review of Systems: See HPI above Physical Exam Physical Exam: General: no acute distress; pleasant affect; non-toxic appearing; cooperative; SpO2 96% on RA HEENT: normocephalic, atraumatic; no scleral icterus; PERRLA; vision and hearing grossly intact Neck: supple; no lymphadenopathy; trachea midline Skin: warm, dry without signs of tenting; no cyanosis; no rashes, bruising, lesions, or erythema noted CV: chest wall NTP; RRR; S1/S2 normal; no murmurs/rubs/gallops; pulses intact and symmetric at radial, DP, and PT Lungs: no acute respiratory distress; symmetrical chest wall expansion; clear breath sounds across all lung guardado w/o adventitious sounds; no wheezing ABD: Soft, mildly TTP in the RUQ; BS present; no rebound/guarding; no distention; no rashes or bruising appreciated the abdomen or flanks bilaterally MSK: no tics or fasciculations; no edema noted in the LEs b/l, nonerythematous Neuro: A&Ox3; normal mood and affect; fluent speech; no focal deficits; sensation grossly intact in the LEs b/l Results & Data Results & Data Vital Signs (Past 12 Hours) Vital Signs Temp Pulse Pulse Resp BP Pulse Ox O2 Del Method 06/21/25 08:58 37.0 C 82 16 122/76 97 Room Air 06/21/25 02:47 36.8 C 83 18 110/71 97 Room Air 06/20/25 22:48 75 PG Care Time/CCT Total # of Minutes Spent Total Time Spent with Patient: Total time spent is greater than 50% in coordination of care (as documented) at patient's floor/unit and/or counseling patient: Coding [place] [address] SUB INP/OBS CARE 3/50MIN Patient Type Established Medical Decision Making High Complexity Diagnoses Perforated duodenal ulcer K26.5 Duodenal abscess K63.0 Hypokalemia E87.6 Asymptomatic bacteriuria R82.71
[2025-06-21] MEDS: ONDANSETRON INJ 2 MG/ML 2 ML VIAL IV PRN (11:14)
[2025-06-22] MEDS: ACETAMINOPHEN 1,000 MG/100 ML VIAL IV PRN (08:14)
[2025-06-22 08:53] LABS: Hematocrit (blood only) 31.9 % (37.0-47.0); Hemoglobin 11.0 g/dl (12.0-16.0); Immature Granulocytes # (auto) 0.03 K/uL (0.01-0.20); Immature Granulocytes % (auto) 0.4 %; Mean Corpuscular Hemoglobin 29.9 pg (25.0-34.0); Mean Corpuscular Volume 86.7 fL (80.0-100.0); Platelet Count 228 K/uL (130-400); RDW Standard Deviation 35.9 fL (36.4-46.3); Red Blood Count 3.68 M/uL (4.20-5.40); White Blood Count 8.34 K/ul (4.8-10.8)
--- NOTE | 2025-06-22 09:06 | Surgery Progress Note ---
Date of Service June 22, 2025 Assessment & Plan (1) Duodenal abscess: (2) Perforated duodenal ulcer: Plan 49 yo female with 4 day history of right upper abdominal pain with associated bloating vomiting x 1 found to have perforated duodenal ulcer with 4 cm abscess. hemodynamically stable, no pneumoperitoneum, no leukocytosis, afebrile. 06/22/25 avss no leukocytosis abdomen soft, tender in RUQ with peritonitis or rigidity pain improving slightly No acute surgical intervention required. Sips of clears today, IV fluids, IV antibiotics (will need at least 3 days of IV abx given abscess), Protonix drip, antiemetics and pain management as needed, follow labs. Will need to slowly increase diet and will need GI consultation to establish care for outpatient upper endoscopy. Will follow along. [facility] surgery on for weekend. Dr. arevalo has seen patient and agrees with above. Admission and Anticipated Discharge Date Admission Date: June 20, 2025 Subjective abdominal pain slightly improved this morning, morhpine overnight, no change in pain slight nausea and lightheadedness appetite coming back, wants some clear liquids no chest pain or shortness of breath no vomiting passed small amount of gas, no bowel movement urinating without difficulty Physical Exam Constitutional: WD/WN, vitals as above cooperative and comfortable; no acute distress and not ill appearing Respiratory: normal respiratory effort; no respiratory distress and no labored breathing Gastrointestinal (Abdomen): Inspection/Auscultation: abdomen normal to inspection and normal bowel sounds; abdomen not distended Percussion/Palpation: + abdomen tender (RUQ) and abdomen soft; no guarding, abdomen not rigid and abdomen not firm Skin: no rashes, warm and dry Psychiatric: Orientation: alert and oriented x 3 Results & Data Vital Signs (Past 12 Hours) Vital Signs Temp Pulse Pulse Resp BP Pulse Ox O2 Del Method 06/22/25 07:41 36.6 C 80 20 115/75 98 Room Air 06/22/25 05:08 82 16 126/76 95 Room Air 06/22/25 03:02 37.2 C 82 18 113/70 96 Room Air 06/21/25 22:32 36.8 C 78 18 117/71 96 Room Air 06/21/25 22:01 76 Laboratory Results 06/22/25 06/21/25 Range/Units 08:26 11:19 WBC 8.34 (4.8-10.8) K/ul RBC 3.68 L (4.20-5.40) M/uL Hgb 11.0 L (12.0-16.0) g/dl Hct 31.9 L (37.0-47.0) % MCV 86.7 (80.0-100.0) fL MCH 29.9 (25.0-34.0) pg MCHC 34.5 (32.0-36.0) g/dL RDW Std Deviation 35.9 L (36.4-46.3) fL RDW Coeff of Niyah 11.3 L (11.5-14.5) % Plt Count 228 (130-400) K/uL MPV 8.5 L (9.4-12.4) fL Immature Gran % (Auto) 0.4 % Neut % (Auto) 71.9 % Lymph % (Auto) 16.4 % Pepin % (Auto) 8.5 % Eos % (Auto) 2.6 % Baso % (Auto) 0.2 % Neut # (Auto) 5.99 (1.40-6.50) K/uL Lymph # (Auto) 1.37 (1.20-3.40) K/uL Pepin # (Auto) 0.71 H (0.11-0.59) K/uL Eos # (Auto) 0.22 (0.00-0.50) K/uL Baso # (Auto) 0.02 (0.00-0.20) K/uL Immature Gran # (Auto) 0.03 (0.01-0.20) K/uL Sodium Pending Potassium Pending Chloride Pending Carbon Dioxide Pending Anion Gap Pending BUN Pending Creatinine Pending Est Cr Clr Drug Dosing Pending eGFR Pending BUN/Creatinine Ratio Pending Glucose Pending POC Glucose 99 (70-99) mg/dl Calcium Pending
[2025-06-22 09:08] LABS: Anion Gap 9.0 (3-11); Blood Urea Nitrogen 5.0 mg/dl (6-23); Calcium 8.1 mg/dl (8.6-10.3); Carbon Dioxide 24.0 mmol/L (21-32); Chloride 103.0 mmol/L (98-107); Creatinine Clr Calc Pharmacy 143.5 ml/min; Glucose 88.0 mg/dl (70-99(Fasting)); Potassium 3.4 mmol/L (3.5-5.1); Sodium 136.0 mmol/L (136-145)
--- NOTE | 2025-06-22 10:05 | Hospitalist Progress Note ---
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 Patient presented to her PCP in the a.m. 06/20 due to 3 days of right upper quadrant abdominal cramping, chills, fatigue, and poor appetite. PCP ordered a stat CT which showed perforated duodenal ulcer with small abscess and patient was referred to come into the ED for admission. Not septic on admission. #Perforated duodenal ulcer and abscess seen on abdomen pelvis CT Suspect this was precipitated by combination of ibuprofen use (800 mg taken on Saturday 06/16) while also drinking alcohol for the [employer] game No prior h/o peptic or duodenal ulcers General surgery consulted Plan for conservative measures Abscess is small and IR likely not an option due to location near small bowel Gastroenterology consult appreciated Patient will require OP EGD in 4-6 weeks upon d/c Protonix 40mg BID on d/c Advanced to clear liquid diet on 06/22 Continue fluid resuscitation with LR 80 mL/hour in the setting of poor p.o. intake Continue Protonix drip Continue Zosyn 4.5 G IV every 8 hours Patient will likely require IV antibiotics x 3 days pending improvement First dose of Zosyn on 06/20 at 1800 MRSA swab negative BCx draw 06/20 with NGTD IV pain control with Tylenol and morphine as needed IV antiemetics PRN #Hypokalemia Suspected due to poor p.o. intake several days T[employer] K remains low at 3.4 on 06/22 K riders for repletion PRN Trend BMP #Alcohol use Patient reports 10-14 alcoholic beverages per week, denies any previous withdrawal symptoms. She reports she does occasionally go some days without drinking. Low concern for withdrawal on admission. #Asthma Allergy induced, continue as needed inhaler. 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 VTE ppx: SCDs, defer chemical with possible surgical management and low risk Dispo: Continued stay on med/tele Admission and Anticipated Discharge Date Admission Date: June 20, 2025 Supervising Physician Co-Signing Physician Notes Attending Attestation - Chart reviewed, care plan d/w EMILIE Collier. I agree w/ the villarreal components of his documentation. Appreciate gen surg assistance. They will allow clear liquid diet today. Cont IV PPI. Cont IV abx. James Hall MD Subjective Mrs. Shaw reports she slept well last night, and is happy to report improvement in her abdominal pain today. Today it is a 3 out of 10, mainly in her epigastric region. She has been tolerating small sips of water, and was able to drink some orange juice this morning without exacerbating the pain in her stomach. No BMs today. She did have some nausea overnight, but reports that the Zofran helped. Her main complaint at this time is that she has a headache and lightheadedness, which she attributes to not eating over the past 2 days. ROS: Patient endorses epigastric pain, and intermittent nausea. Patient denies fevers, chest pain, SOB, cough, pleuritic CP, vomiting, or blood in the urine or stool. Review of Systems Review of Systems: See HPI above Physical Exam Physical Exam: General: no acute distress; pleasant affect; non-toxic appearing; cooperative; SpO2 98% on RA HEENT: normocephalic, atraumatic; no scleral icterus; PERRLA; vision and hearing grossly intact Neck: supple; no lymphadenopathy; trachea midline Skin: warm, dry without signs of tenting; no cyanosis; no rashes, bruising, lesions, or erythema noted CV: chest wall NTP; RRR; S1/S2 normal; no murmurs/rubs/gallops; pulses intact and symmetric at radial, DP, and PT Lungs: no acute respiratory distress; symmetrical chest wall expansion; clear breath sounds across all lung guardado w/o adventitious sounds; no wheezing ABD: Soft, mildly TTP in the RUQ and epigastric region; BS present; no rebound/guarding; no distention; no rashes or bruising appreciated the abdomen or flanks bilaterally MSK: no tics or fasciculations; no edema noted in the LEs b/l, nonerythematous Neuro: A&Ox3; normal mood and affect; fluent speech; no focal deficits; sensation grossly intact in the LEs b/l Results & Data Results & Data Vital Signs (Past 12 Hours) Vital Signs Temp Pulse Resp BP Pulse Ox O2 Del Method 06/22/25 07:41 36.6 C 80 20 115/75 98 Room Air 06/22/25 05:08 82 16 126/76 95 Room Air 06/22/25 03:02 37.2 C 82 18 113/70 96 Room Air 06/21/25 22:32 36.8 C 78 18 117/71 96 Room Air PG Care Time/CCT Total # of Minutes Spent Total Time Spent with Patient: Total time spent is greater than 50% in coordination of care (as documented) at patient's floor/unit and/or counseling patient: C[place] [address] SUB INP/OBS CARE 2/35MIN Patient Type Established Medical Decision Making Moderate Complexity Diagnoses Perforated duodenal ulcer K26.5 Duodenal abscess K63.0 Hypokalemia E87.6 Asymptomatic bacteriuria R82.71
--- NOTE | 2025-06-22 10:16 | Gastrointestinal Consultation ---
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 Acute management per general surgery and primary team. Recommend OP EGD, generally in about 4-6 weeks to allow for adequate healing.She will need OP GI clinic appt prior to arrange EGD. She will need repeat CTAP prior to EGD to re- assess the collection. Continue IV PPI while admitted. Once discharged, recommend Pantoprazole 40 mg twice daily. D/C NSAIDs. ETOH cessation encouraged. Remain tobacco free. Follow H.Pylori result. Thank you for allowing us to participate in the care of this patient. Please call with any acute changes, questions or concerns. Please see addendum below with additional recommendation from my supervising physician. I spent a total of 60 minutes on the date of service in review of patient's record, and previously obtained information in person and appropriate medical visit, discussion and education of plan, with patient and/or caregiver, placing orders for tests/referral/procedures as medically necessary and documentation of pertinent clinical information in patient's medical records for their visit today. Supervising Physician Co-Signing Physician Notes I personally saw and examined the patient. I have reviewed the chart and agree with the documentation provided by the VIOLIN MECHANIC including discussion about the assessment, treatment and plan. 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 Acute management per general surgery and primary team. Recommend OP EGD, generally in about 4-6 weeks to allow for adequate healing.She will need OP GI clinic appt prior to arrange EGD. She will need repeat CTAP prior to EGD to re- assess the collection. Continue IV PPI while admitted. Once discharged, recommend Pantoprazole 40 mg twice daily. D/C NSAIDs. ETOH cessation encouraged. Remain tobacco free. Follow H.Pylori result. On exam today she still has tenderness in the midepigastric right upper quadrant area but it has improved per her recollection. There is no rebound present. She is tolerating a liquid diet. I will scope her likely in 1 month History of Present Illness Reason for Consultation: Duodenal perf Requesting Physician: James Hall MD Attending Physician: James Hall MD History of Present Illness 49 year old female with history of IBS, allergy induced asthma, high risk breast fibroadenomas admitted through the ED w/ abdominal pain, CTAP w/suggestive of perforated duodenal ulcer with adjacent small abscess. She notes she has had some vague gastrointestinal symptoms for about a month. However, she has IBS and believes these were her IBS symptoms. Acutely, she developed abd pain Wednesday. She had report of chills and emesis at home x 1. No black/bloody emesis. As pain persisted, sought PCP care. Stat CT concerning for perforation was directed through the ED. She was evaluated by general surgery - conservative treatment was recommended as she was hemodynamically stable w/o pneumoperitoneum w/o fevers. She was made NPO, started on IV fluids, IV ABX and IV PPI. This AM she was started on clear liquids. GI was asked to assist in arranging outpatient endoscopic evaluation. She uses NSAIDs 4-5 days out of the month for MSK discomfort and menstrual disc omfort She consumes about 10-14 alcoholic beverages a week Denies tobacco use CTAP 2024: Findings highly suggestive of perforated duodenal ulcer with adjacent small abscess Colonoscopy 2022: - One 3 mm polyp in the ascending colon, removed with a cold snare. Resected and retrieved. - One 4 mm polyp in the transverse colon, removed with a cold snare. Resected and retrieved. - One 3 mm polyp in the descending colon, removed with a cold snare. Resected and retrieved. - Non-bleeding internal hemorrhoids. Allergies Allergy/AdvReac Type Severity Reaction Status Date / Time cat dander Allergy Severe Verified 06/20/25 11:27 No Known Drug Allergies Allergy Unknown Verified 06/20/25 11:27 nickel Allergy CONTACT Verified 06/20/25 11:27 DERMATITIS Home Medications Medication Instructions Recorded Confirmed Type hydrocortisone 2.5 % topical cream 1 appln ME DAILY PRN hemorrhoids 05/02/19 06/20/25 Rx with perineal applicator #30 grams (Anusol-HC) albuterol sulfate 90 mcg/actuation 2 inh inhalation QID PRN shortness 06/02/22 06/20/25 Rx aerosol inhaler (Ventolin HFA) of breath or wheezing #18 grams estradiol 0.01% (0.1 mg/gram) 1 g vaginal DAILY #42.5 grams 05/10/25 06/20/25 Rx vaginal cream Patient History Medical History Nausea and vomiting after administration of anesthetic agent IBS (irritable bowel syndrome) Hx of migraines X3 IN WHOLE LIFE, 2 WERE DURING History of COVID-19 11/2021, HOME TEST, NOT HOSP; FATIGUE FOR 2-3 WEEKS, BRAIN FOG>RESOLVED. Asthma "ALLERGY INDUCED"-INH PRN Hemorrhoids Surgical History S/P tooth extraction S/P dilation and curettage Family History Sister Breast cancer, Onset Age: 40 Grandfather (Maternal) Leukemia Denies family history of Pancreatic cancer Ovarian cancer Prostate cancer Colorectal cancer Uterus cancer Social History Smoking Status: Former smoker Tobacco Type: Cigarettes Smoking End Date: 20 years ago; Second Hand Exposure: No; Do You Dip or Chew Tobacco: No; Hx Alcohol Use: Yes Alcohol type: wine Alcohol Intake Frequency Comment: One glass daily Hx Substance Use: Yes Substance Use Type Other:: occasional Preferred Language: Nepali Communication Ability: Effective Visual Impairment: No Limitations Hearing Ability: Normal District Agent Required: No Beliefs That Will Affect Care: None marital status: Single Current Living Situation: Spouse current occupational status: employed 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 Physical Exam Constitutional: WD/WN, vitals as above Respiratory: normal respiratory effort, lungs clear to auscultation Cardiovascular: Rate/Rhythm: regular rate and regular rhythm Gastrointestinal (Abdomen): Inspection/Auscultation: normal bowel sounds Percussion/Palpation: + abdomen tender and abdomen soft; no guarding and abdomen not rigid +mild discomfort to palpation Skin: no rashes, warm and dry Results & Data Vital Signs (Past 12 Hours) Vital Signs Temp Pulse Resp BP Pulse Ox O2 Del Method 06/22/25 07:41 97.9 F 80 20 115/75 98 Room Air 06/22/25 05:08 82 16 126/76 95 Room Air 06/22/25 03:02 99.0 F 82 18 113/70 96 Room Air 06/21/25 22:32 98.2 F 78 18 117/71 96 Room Air Laboratory Results 06/22/25 06/21/25 Range/Units 08:26 11:19 WBC 8.34 (4.8-10.8) K/ul RBC 3.68 L (4.20-5.40) M/uL Hgb 11.0 L (12.0-16.0) g/dl Hct 31.9 L (37.0-47.0) % MCV 86.7 (80.0-100.0) fL MCH 29.9 (25.0-34.0) pg MCHC 34.5 (32.0-36.0) g/dL RDW Std Deviation 35.9 L (36.4-46.3) fL RDW Coeff of Niyah 11.3 L (11.5-14.5) % Plt Count 228 (130-400) K/uL MPV 8.5 L (9.4-12.4) fL Immature Gran % (Auto) 0.4 % Neut % (Auto) 71.9 % Lymph % (Auto) 16.4 % Williamson % (Auto) 8.5 % Eos % (Auto) 2.6 % Baso % (Auto) 0.2 % Neut # (Auto) 5.99 (1.40-6.50) K/uL Lymph # (Auto) 1.37 (1.20-3.40) K/uL Williamson # (Auto) 0.71 H (0.11-0.59) K/uL Eos # (Auto) 0.22 (0.00-0.50) K/uL Baso # (Auto) 0.02 (0.00-0.20) K/uL Immature Gran # (Auto) 0.03 (0.01-0.20) K/uL Sodium 136 (136-145) mmol/L Potassium 3.4 L (3.5-5.1) mmol/L Chloride 103 (98-107) mmol/L Carbon Dioxide 24 (21-32) mmol/L Anion Gap 9 (3-11) BUN 5 L (6-23) mg/dl Creatinine 0.48 L (0.6-1.2) mg/dl Est Cr Clr Drug Dosing 143.5 ml/min eGFR 116.76 BUN/Creatinine Ratio 10.4 (10-20) Glucose 88 (70-99(Fasting)) mg/dl POC Glucose 99 (70-99) mg/dl Calcium 8.1 L (8.6-10.3) mg/dl PG Care Time/CCT Total # of Minutes Spent Total Time Spent with Patient: Total time spent is greater than 50% in coordination of care (as documented) at patient's floor/unit and/or counseling patient: Coding Level of Care Code 22537 IN/OBS CONSULT LVL 4,60M Diagnoses Duodenal abscess K63.0
[2025-06-22] MEDS: POTASSIUM CHLORIDE / WTR 10 MEQ/100 ML PLCT IV ONE (12:31)
[2025-06-23 07:15] LABS: Hematocrit (blood only) 30.5 % (37.0-47.0); Hemoglobin 11.0 g/dl (12.0-16.0); Immature Granulocytes # (auto) 0.05 K/uL (0.01-0.20); Immature Granulocytes % (auto) 0.5 %; Mean Corpuscular Hemoglobin 31.2 pg (25.0-34.0); Mean Corpuscular Volume 86.4 fL (80.0-100.0); Platelet Count 251 K/uL (130-400); RDW Standard Deviation 35.3 fL (36.4-46.3); Red Blood Count 3.53 M/uL (4.20-5.40); White Blood Count 9.20 K/ul (4.8-10.8)
[2025-06-23 07:40] LABS: Anion Gap 8.0 (3-11); Blood Urea Nitrogen 3.0 mg/dl (6-23); Calcium 8.1 mg/dl (8.6-10.3); Carbon Dioxide 28.0 mmol/L (21-32); Chloride 102.0 mmol/L (98-107); Creatinine Clr Calc Pharmacy 127.9 ml/min; Glucose 99.0 mg/dl (70-99(Fasting)); Potassium 3.3 mmol/L (3.5-5.1); Sodium 138.0 mmol/L (136-145)
--- NOTE | 2025-06-23 09:46 | Surgery Progress Note ---
Date of Service June 23, 2025 Assessment & Plan (1) Perforated duodenal ulcer: Plan: Pt here w/ perforated duodenal ulcer with 4cm abscess WBC 9.vitals stable and she is afebrile Had some pain overnight that is improved with tyelnol. she remains with discom fort in the upper abdomen, but overall much improved from her admission Would not go past clear liquids today. and if any worsening symptoms please back down to NPO Continue IV Abx and IV PPI Will continue to follow Admission and Anticipated Discharge Date Admission Date: June 20, 2025 Subjective Patient feeling okay. had some upper abdominal pain overnight, relieved with tylenol. no issues with the clears. otherwise she is feeling better than admission Physical Exam Physical Exam: awake/alert, no distress Gastrointestinal (Abdomen): Percussion/Palpation: + abdomen tender (improving upper abdomen discomfort) and abdomen soft Results & Data Vital Signs (Past 12 Hours) Vital Signs Temp Pulse Pulse Resp BP Pulse Ox O2 Del Method 06/23/25 07:22 98.6 F 76 16 132/83 96 Room Air 06/23/25 04:11 98.4 F 72 20 115/73 96 Room Air 06/23/25 00:15 98.4 F 72 20 117/75 96 Room Air 06/22/25 21:49 69 PG Care Time/CCT Total # of Minutes Spent Total Time Spent with Patient: Total time spent is greater than 50% in coordination of care (as documented) at patient's floor/unit and/or counseling patient: Coding Level of Care Code 29263 SUB INP/OBS CARE 11/04MIN Diagnoses Perforated duodenal ulcer K26.5
--- NOTE | 2025-06-23 10:35 | Hospitalist Progress Note ---
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 Patient presented to her PCP in the a.m. 06/20 due to 3 days of right upper quadrant abdominal cramping, chills, fatigue, and poor appetite. PCP ordered a stat CT which showed perforated duodenal ulcer with small abscess and patient was referred to come into the ED for admission. Not septic on admission. #Perforated duodenal ulcer and abscess seen on abdomen pelvis CT Suspect this was precipitated by combination of ibuprofen use (800 mg taken on Saturday 06/16) while also drinking alcohol for the [employer] game No prior h/o peptic or duodenal ulcers General surgery consulted Plan for conservative measures Abscess is small and IR likely not an option due to location near small bowel Gastroenterology consult appreciated Patient will require OP EGD in 4-6 weeks upon discharge Protonix 40mg BID upon discharge Advanced to clear liquid diet on 06/22 without setback Maintain clear liquid diet for now Continue fluid resuscitation with LR 80 mL/hour in the setting of poor p.o. intake Continue Protonix drip Continue Zosyn 4.5 G IV every 8 hours Patient will likely require IV antibiotics x 3 days pending improvement First dose of Zosyn on 06/20 at 1800 MRSA swab negative BCx draw 06/20 with NGTD IV pain control with Tylenol and morphine as needed IV antiemetics PRN #Hypokalemia Suspected due to poor p.o. 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 She reports she does occasionally go some days without drinking. Low concern for withdrawal on admission. #Asthma Allergy induced, continue as needed inhaler. #Breast fibroadenomas Followed by general surgery, Giving Officer, patient has referral to breast surgeon in outpatient setting given high risk for breast cancer (Family history and positive genetic testing). VTE ppx: SCDs, defer chemical with possible surgical management and low risk Dispo: Continued stay on med/tele; hopeful discharge home in the next several days if no setbacks Admission and Anticipated Discharge Date Admission Date: June 20, 2025 Supervising Physician Co-Signing Physician Notes Attending Attestation - Chart reviewed, care plan d/w EMILIE Collier. I agree w/ the villarreal components of his documentation. James Hall MD Subjective Mrs. Shaw reports that she feels better today, and is still having 2 out of 10 upper quadrant abdominal " discomfort". Overall she just feels "uncomfortable". She did not sleep well last night. No bowel movements in the hospital. However, she denies any nausea or vomiting when advancing her diet to clear liquids yesterday. She was able to tolerate tea, juice, vegetable broth, and Maori ice without exacerbation of stomach pain. ROS: Patient endorses mild RUQ abdominal pain. Patient denies fevers, chest pain, SOB, cough, N/V/D, or changes in urinary habits. Review of Systems Review of Systems: See HPI above Physical Exam Physical Exam: General: no acute distress; pleasant affect; non-toxic appearing; cooperative; SpO2 96% on RA HEENT: normocephalic, atraumatic; no scleral icterus; PERRLA; vision and hearing grossly intact Neck: supple; no lymphadenopathy; trachea midline Skin: warm, dry without signs of tenting; no cyanosis; no rashes, bruising, lesions, or erythema noted CV: chest wall NTP; RRR; S1/S2 normal; no murmurs/rubs/gallops; pulses intact and symmetric at radial, DP, and PT Lungs: no acute respiratory distress; symmetrical chest wall expansion; clear breath sounds across all lung guardado w/o adventitious sounds; no wheezing ABD: Soft, mildly TTP in the RUQ and epigastric region; BS present; no rebound/guarding; no distention; no rashes or bruising appreciated the abdomen or flanks bilaterally MSK: no tics or fasciculations; no edema noted in the LEs b/l, nonerythematous Neuro: A&Ox3; normal mood and affect; fluent speech; no focal deficits; sensation grossly intact in the LEs b/l Results & Data Results & Data Vital Signs (Past 12 Hours) Vital Signs Temp Pulse Resp BP Pulse Ox O2 Del Method 06/23/25 07:22 37.0 C 76 16 132/83 96 Room Air 06/23/25 04:11 36.9 C 72 20 115/73 96 Room Air 06/23/25 00:15 36.9 C 72 20 117/75 96 Room Air PG Care Time/CCT Total # of Minutes Spent Total Time Spent with Patient: Total time spent is greater than 50% in coordination of care (as documented) at patient's floor/unit and/or counseling patient: [place]oding [place] [address] SUB INP/OBS CARE 11/04MIN Patient Type Established Medical Decision Making Low Complexity Diagnoses Perforated duodenal ulcer K26.5 Duodenal abscess K63.0 Hypokalemia E87.6 Asymptomatic bacteriuria R82.71
[2025-06-23] MEDS: diphenhydrAMINE 50 MG/ML VIAL IV STA (21:43)
[2025-06-23] MEDS: diphenhydrAMINE 50 MG/ML VIAL ONE (21:43)
[2025-06-24 06:36] LABS: Hematocrit (blood only) 32.9 % (37.0-47.0); Hemoglobin 11.2 g/dl (12.0-16.0); Mean Corpuscular Hemoglobin 29.8 pg (25.0-34.0); Mean Corpuscular Volume 87.5 fL (80.0-100.0); Platelet Count 292 K/uL (130-400); RDW Standard Deviation 36.6 fL (36.4-46.3); Red Blood Count 3.76 M/uL (4.20-5.40); White Blood Count 6.33 K/ul (4.8-10.8)
[2025-06-24 06:57] LABS: Immature Granulocytes # (auto) 0.03 K/uL (0.01-0.20); Immature Granulocytes % (auto) 0.5 %; Polychromasia 1+
[2025-06-24 07:05] LABS: Anion Gap 6.0 (3-11); Blood Urea Nitrogen 4.0 mg/dl (6-23); Calcium 8.5 mg/dl (8.6-10.3); Carbon Dioxide 29.0 mmol/L (21-32); Chloride 104.0 mmol/L (98-107); Creatinine Clr Calc Pharmacy 109.6 ml/min; Glucose 102.0 mg/dl (70-99(Fasting)); Potassium 3.2 mmol/L (3.5-5.1); Sodium 139.0 mmol/L (136-145)
[2025-06-24 07:49] VITALS: RESP 16
--- NOTE | 2025-06-24 09:24 | Surgery Progress Note ---
<Statement entered by Tremayne Mcnair MD - 06/24/25 13:19> I independently saw the patient and agree with the assessment and plan of care. Date of Service June 24, 2025 Assessment & Plan (1) Perforated duodenal ulcer: Plan: Patient admitted to the medical service on 06/20 with perforated duodenal ulcer with 4cm abscess -VSS, afebrile, WBC 6.3 -Patient's pain has significantly improved overall, she is requiring minimal pain medication, and tolerating clears. Will plan to advance to regular diet today and see how she does. Patient is eager to get home, we will see how she does with diet advancement. If she tolerates lunch and dinner it is reasonable for her potentially be discharged tonight. However if patient has worsening pain with increasing her diet we will need to back her diet down. -Continue IV Abx and IV PPI for now, patient will need 14 days of oral antibiotics at time of discharge and oral PPI -Continue medical management per primary team, surgery will continue to follow along Admission and Anticipated Discharge Date Admission Date: June 20, 2025 Subjective Patient seen and evaluated this morning, feels great this morning Tolerating clears without any issues of worsening abdominal pain, nausea or vomiting Pain controlled and hasn't required much medication VSS , afebrile and WBC 6.3, and continues on IV abx at this time Physical Exam Constitutional: WD/WN, vitals as above Respiratory: normal respiratory effort, lungs clear to auscultation Cardiovascular: RRR, no murmur, no edema Gastrointestinal (Abdomen): Abdomen soft, nondistended, nontender to palpation No rebound, guarding or peritonitis Skin: no rashes, warm and dry Results & Data Vital Signs (Past 12 Hours) Vital Signs Temp Pulse Pulse Resp BP Pulse Ox O2 Del Method 06/24/25 08:54 67 06/24/25 07:48 36.7 C 68 16 113/73 98 Room Air 06/24/25 03:45 36.8 C 70 20 114/71 96 Room Air 06/24/25 00:13 37.1 C 72 20 110/73 96 Room Air 06/23/25 21:43 74 PG Care Time/CCT Total # of Minutes Spent Total Time Spent with Patient: Total time spent is greater than 50% in coordination of care (as documented) at patient's floor/unit and/or counseling patient: Coding [place] [address] SUB INP/OBS CARE 11/04MIN Patient Type Established History Problem Focused Exam Problem Focused Medical Decision Making Straight Forward Diagnoses Perforated duodenal ulcer K26.5
[2025-06-24 11:12] VITALS: BP 129/75; TEMP 97.5; O2SAT 97
[2025-06-24] MEDS: POTASSIUM CHLORIDE CRTAB 20 MEQ TABCR PO STA (12:25)
--- NOTE | 2025-06-24 14:42 | Discharge Summary ---
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 Patient presented to her PCP in the a.m. 06/20 due to 3 days of right upper quadrant abdominal cramping, chills, fatigue, and poor appetite. PCP ordered a stat CT which showed perforated duodenal ulcer with small abscess and patient was referred to come into the ED for admission. Not septic on admission. Day of discharge 06/24: Mrs. Shaw slept well last night. She denies any epigastric pain this morning. She tolerated her diet of vegetable broth, OJ, and tea this morning without recurrence of pain. She is also happy to report that she had a solid bowel movement today. Soft in consistency; brown; no liquid; no melena; no blood in the urine or stool. Patient would like to try a more advanced diet today if possible. ROS: Patient denies fever, chills, night sweats, chest pain, SOB, pleuritic CP, cough, abdominal pain, recurrence of epigastric pain, N/V/D, blood in the urine or stool, melena, or burning with urination. Addendum at 1400: Patient tolerated a regular diet for breakfast and lunch. She was able to have eggs and toast, and did not have any nausea or vomiting afterwards. No recurrence of right upper quadrant or epigastric pain. She is eager to return home at this time if possible. #Perforated duodenal ulcer and abscess seen on abdomen pelvis CT Suspect this was precipitated by combination of ibuprofen use (800 mg taken on Saturday 06/16) while also drinking alcohol for the [employer] football game No prior h/o peptic or duodenal ulcers General surgery consulted Plan for conservative measures Abscess is small and IR likely not an option due to location near small bowel Gastroenterology consult appreciated Patient will require OP EGD in 4-6 weeks upon discharge Advanced to clear liquid diet on 06/22 without setback Advance to regular diet on 06/24 without setback IVF discontinued Protonix drip discontinued Patient received Zosyn 4.5 g IV q8h while in the hospital MRSA swab negative BCx draw 06/20 with NGTD Patient's pain was controlled with IV Tylenol while in the hospital No recurrence of nausea and vomiting Will plan to discharge patient home on the following medications: Augmentin 875-125 mg BID x 14 days Pantoprazole 40 mg p.o. BID until seen by GI for f/u #Hypokalemia K remains low at 3.2 on day of discharge despite K riders Potassium chloride 40 mEq p.o. 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 She reports she does occasionally go some days without drinking. Low concern for withdrawal on admission. #Asthma Allergy induced, continue as needed inhaler. #Breast fibroadenomas Followed by general surgery, Rn Building, patient has referral to breast surgeon in outpatient setting given high risk for breast cancer (Family history and positive genetic testing). Disposition: Discharge home Notes For Next Care Provider Patient was hospitalized for a perforated duodenal ulcer with small abscess. Nonoperative. Unable to perform IR drainage of the abscess given size and proximity to small bowel. Patient received IV Zosyn while in the hospital. Her diet was slowly advanced, and she reports no pain, nausea, or vomiting while having a regular diet. Patient will need to follow-up CT scan of her abdomen pelvis prior to GI appointment. She will then require an EGD with GI in 4 to 6 weeks assuming perforation has healed. 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 Patient presented to her PCP in the a.m. 06/20 due to 3 days of right upper quadrant abdominal cramping, chills, fatigue, and poor appetite. PCP ordered a stat CT which showed perforated duodenal ulcer with small abscess and patient was referred to come into the ED for admission. Patient seen at bedside. 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 She stated she went to the [employer] on Wednesday and had a lot of cheese and beer which typically flares up her IBS so she did not think much of her stomach cramping on Wednesday. She also had chills on Wednesday. As the week went on she also experienced some fatigue, soreness, poor appetite and had to cancel several of her classes. She also endorses 1 episode of vomiting on Wednesday, denies any hematemesis. 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 She denies any history of acid reflux, chest pain, shortness of breath, melena, hematochezia, dysuria, difficulty urinating, hematuria. She stated she was a former smoker in college however has not smoked in about 20 years. She does endorse alcohol use, most days of the week however she stated she does go some days without drinking. She states she typically drinks 10-14 alcohol beverages per week which consists of a glass of wine with dinner or a mixed drink. Guarding a past medical history, she rarely has to use her home inhaler for her asthma that is allergy induced. She also is being followed for potential breast cancer as her sister got diagnosed with breast cancer at 40 and she had genetic testing which showed she was high risk. She had biopsies of bilateral breast fibroadenomas and one of them appeared precancerous however she has not been diagnosed with any cancer. She wishes to be full code. Handoff from ER provider stated that he spoke with on-call general surgeon who recommended no NG tube, continue IV antibiotics, general surgery team will evaluate the patient in the morning. Admission Exam Per Admitting Provider The patient is awake, alert and oriented 3, well developed and well nourished, normocephalic and atraumatic, in no acute distress. Non-toxic appearing. HEENT- EOMI, mucous membranes moist. Hearing grossly intact. Heart-normal S1 and S2. No murmurs, rubs or gallops. Lungs-clear bilaterally, no respiratory distress, no accessory muscle use. Abdomen-normal bowel sounds and soft. No ascites noted. Tender RUQ and epigastric region. Extremities- no clubbing, cyanosis, or edema. Rheumatologic-normal range of motion. Psychiatric-normal affect. Discharge Exam General: no acute distress; pleasant affect; non-toxic appearing; cooperative; SpO2 97% on RA HEENT: normocephalic, atraumatic; no scleral icterus; PERRLA; vision and hearing grossly intact Neck: supple; no lymphadenopathy; trachea midline Skin: warm, dry without signs of tenting; no cyanosis; no rashes, bruising, lesions, or erythema noted CV: chest wall NTP; RRR; S1/S2 normal; no murmurs/rubs/gallops; pulses intact and symmetric at radial, DP, and PT Lungs: no acute respiratory distress; symmetrical chest wall expansion; clear breath sounds across all lung guardado w/o adventitious sounds; no wheezing ABD: Soft, grossly NTP across the stomach (specifically NTP in the right upper quadrant and epigastric regions); BS present; no rebound/guarding; no distention; no rashes or bruising appreciated the abdomen or flanks bilaterally MSK: no tics or fasciculations; no edema noted in the LEs b/l, nonerythematous Neuro: A&Ox3; normal mood and affect; fluent speech; no focal deficits; sensation grossly intact in the LEs b/l Discharge Plan Discharge Items Patient Disposition: Home - Self-Care Reason For Visit: PERFORATED DUODENAL ULCER WITH ABSCESS Discharge Diagnosis: Perforated duodenal ulcer with abscess Condition on Discharge: Good Activity: Resume your previous activity Non-emergency contact: Primary Care Provider and 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 from 06/20 - 06/24 for worsening abdominal pain. On arrival, imaging of your abdomen revealed a perforated duodenal ulcer with adjacent small abscess. Our general surgery team was consulted, and it was determined that you do not require acute surgical intervention. We also reached out to our interventional radiology team, who felt that the abscess was too small, and too close in proximity to your small bowel to be drained. You were treated with bowel rest, IV fluids, IV antinausea medications, IV pain control medications, and an IV antibiotic called "Zosyn". Over the course of your hospital stay, we gradually advance your diet. At time of discharge, your vital signs are stable, you were tolerating a solid diet, and you do not have an elevated white blood cell count to indicate signs of severe infection. For these reasons, we feel that you are safe to return home at this time. New prescriptions on discharge: - Potassium chloride 20mEQ daily supplements x 5 days - Augmentin 875 mg every 12 hours x 14 days - Pantoprazole 40 mg p.o. twice daily until seen by gastroenterology for follow-up Please plan to follow-up with your PCP in the next 7 to 10 days for a transitional care appointment. Prior to this appointment, we recommend you have blood work drawn to assess your potassium level as well as your hemoglobin levels, which are low but stable at time of discharge. You will also need to follow-up with our gastroenterology team as an outpatient. It is recommend that you have a repeat abdomen/pelvic CT to assess for resolution of the perforation. So long as this perforation heals on its own, please plan for a EGD with gastroenterology in the next 4 to 6 weeks. If you develop any new or worsening symptoms, such as intractable abdominal pain, nausea, vomiting, fever, chills, chest pain, or trouble breathing, please return to the emergency department immediately. It was a pleasure to take care of you. Please reach out with any questions or concerns. Sincerely, The Hospital medicine team at [facility] Pending Studies at Discharge: No Stand-Alone Forms: My [facility] Medications and DC Order Prescriptions: New amoxicillin-pot clavulanate 875-125 mg tablet 1 tab PO BID 14 Days Qty: 28 0RF Rx Instructions: Take 1 tablet by mouth twice daily x 14 days potassium chloride 20 mEq tablet extended release 20 meq PO DAILY Qty: 5 0RF Rx Instructions: Take 1 tablet by mouth daily pantoprazole 40 mg tablet,delayed release (DR/EC) 40 mg PO BID Qty: 60 0RF Rx Instructions: Take 1 tablet by mouth twice daily Continued hydrocortisone [Anusol-HC] 2.5 % cream with perineal applicator 1 appln DE DAILY PRN (Reason: hemorrhoids) Qty: 30 2RF albuterol sulfate [Ventolin HFA] 90 mcg/actuation HFA aerosol inhaler 2 inh INH QID PRN (Reason: shortness of breath or wheezing) Qty: 18 3RF estradiol 0.01 % (0.1 mg/gram) cream 1 g vaginal DAILY Qty: 42.5 4RF Rx Instructions: Use daily for 14 days, then 2-3 times per week thereafter. Jessi/Other Patient Handouts: Understanding Perforated Ulcers Admission Data Admit Date/Time: 06/20/25 19:57 Attending Provider: James Hall Admit Provider: Yunier Braxton Primary Care Provider: Martha Aviles Other Providers: Yunier Braxton; Rick Anaya; [facility] Data Consultations 06/20/25 18:26 ED Decision to Admit Stat 06/20/25 18:27 Consult General Surgery Routine 06/22/25 09:57 Consult Gastroenterology Routine Discharge Instructions Given to Patient (Per Discharging Provider) You were hospitalized at [facility] from 06/20 - 06/24 for worsening abdominal pain. On arrival, imaging of your abdomen revealed a perforated duodenal ulcer with adjacent small abscess. Our general surgery team was consulted, and it was determined that you do not require acute surgical intervention. We also reached out to our interventional radiology team, who felt that the abscess was too small, and too close in proximity to your small bowel to be drained. You were treated with bowel rest, IV fluids, IV antinausea medications, IV pain control medications, and an IV antibiotic called "Zosyn". Over the course of your hospital stay, we gradually advance your diet. At time of discharge, your vital signs are stable, you were tolerating a solid diet, and you do not have an elevated white blood cell count to indicate signs of severe infection. For these reasons, we feel that you are safe to return home at this time. New prescriptions on discharge: - Potassium chloride 20mEQ daily supplements x 5 days - Augmentin 875 mg every 12 hours x 14 days - Pantoprazole 40 mg p.o. twice daily until seen by gastroenterology for follow-up Please plan to follow-up with your PCP in the next 7 to 10 days for a transitional care appointment. Prior to this appointment, we recommend you have blood work drawn to assess your potassium level as well as your hemoglobin levels, which are low but stable at time of discharge. You will also need to follow-up with our gastroenterology team as an outpatient. It is recommend that you have a repeat abdomen/pelvic CT to assess for resolution of the perforation. So long as this perforation heals on its own, please plan for a EGD with gastroenterology in the next 4 to 6 weeks. If you develop any new or worsening symptoms, such as intractable abdominal pain, nausea, vomiting, fever, chills, chest pain, or trouble breathing, please return to the emergency department immediately. It was a pleasure to take care of you. Please reach out with any questions or concerns. Sincerely, The Hospital medicine team at [facility] Total Time Total Time Spent Total Time Spent (In Minutes): 45 Coding [place] [address] INP/OBS DISCH >30 MIN Patient Type Established History Comprehensive Exam Comprehensive Medical Decision Making High Complexity Diagnoses Perforated duodenal ulcer K26.5 Duodenal abscess K63.0 Hypokalemia E87.6 Asymptomatic bacteriuria R82.71
[2025-06-24 17:29] VITALS: PULSE 72
== END 2025-06-24 18:29 | disposition home or self-care (01) | DRG 381 ==
LOC: ED 14:47 → 2W 19:57 → SUATTDRO 19:57 → 2W 21:22